=== PATIENT | male | born 1995 | race Caucasian/White ===

== ENCOUNTER 2022-08-01 07:22 | Emergency (ER) | payer OTHER, SELFPAY ==
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
[2022-08-01 07:22] VITALS: BP 138/97; PULSE 91; RESP 18; TEMP 36.7; O2SAT 100
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
[2022-08-01] MEDS: TETANUS,DIPHTHERIA,AC PERTUSSIS ADULT (0.5 ML) BOOSTRIX IM (08:11)
[2022-08-01 09:56] VITALS: BP 133/82; PULSE 81; RESP 15; O2SAT 99
== END 2022-08-01 09:57 | disposition home or self-care (01) ==
PROVIDERS: Emergency Provider Emergency Medicine
DX: R42 Dizziness and giddiness (principal); S40.212A Abrasion of left shoulder, initial encounter; Z23 Encounter for immunization; V47.5XXA Car driver injured in collision with fixed or stationary object in traffic accident, initial encounter
CPT/HCPCS: 70450; 71046; 90471; 90715; 99284